=== PATIENT | female | born 1995 | race Caucasian/White ===

== ENCOUNTER 2018-02-01 19:00 | Emergency (ER) | END 2018-02-01 19:28 | disposition home or self-care (01) ==

== ENCOUNTER 2019-07-24 23:25 | Emergency (ER) | payer OTHER ==
[~2019-07-24] VITALS: Ht 167.6 cm; Wt 64.2 kg
[~2019-07-24 23:25] MED LIST: AMOX500C2 PO; IBUP-1542 PO; NITR-58 PO
[2019-07-24 23:32] VITALS: BP 114/77; PULSE 63; RESP 16; Ht 167.6 cm; Wt 64.2 kg
== END 2019-07-25 03:35 | disposition home or self-care (01) ==
LOC: FTE 23:25
DX: S60.221A Contusion of right hand, initial encounter (principal); W22.8XXA Striking against or struck by other objects, initial encounter; Y92.9 Unspecified place or not applicable
CPT/HCPCS: 73110; 73130; 81025; Z7502